=== PATIENT | male | born 1985 | race Caucasian/White ===

== ENCOUNTER 2021-06-22 18:49 | Emergency (ER) | payer OTHER ==
[~2021-06-22] VITALS: Ht 188 cm; Wt 93.9 kg
[2021-06-22] MEDS ORDERED: HUMALOG100 UNIT/2 SQ (19:06)
[2021-06-22] MEDS ORDERED: PROAIR HFA8.5 GM IH (23:22)
[2021-06-22] MEDS ORDERED: TUSNEL LIQUID178 ML PO (23:22)
[2021-06-22] MEDS ORDERED: DOLOGEN CAPLET1 EACH PO (23:22)
== END 2021-06-22 23:33 | disposition home or self-care (01) ==
LOC: ER 18:49
DX: U07.1 COVID-19 (principal); E11.9 Type 2 diabetes mellitus without complications; Z79.4 Long term (current) use of insulin

== ENCOUNTER 2023-10-05 14:32 | Emergency (ER) | payer OTHER ==
[~2023-10-05] VITALS: Ht 188 cm; Wt 95.3 kg
[~2023-10-05 14:32] MED LIST: DOLOGEN CAPLET1 EACH PO; HUMALOG100 UNIT/2 SQ; PROAIR HFA8.5 GM IH; TUSNEL LIQUID178 ML PO
[2023-10-05] MEDS ORDERED: ORPHENADRINE CITRATE 30 MG/ML AMPUL IM STA (15:15)
[2023-10-05] MEDS ORDERED: KETOROLAC TROMETHAMINE 30 MG VIAL IM STA (15:15)
[2023-10-05] MEDS ORDERED: ORPHENADRINE CITRATE 30 MG/ML AMPUL ONE (15:55)
[2023-10-05] MEDS ORDERED: KETOROLAC TROMETHAMINE 30 MG VIAL ONE (15:55)
== END 2023-10-05 16:13 | disposition home or self-care (01) ==
LOC: ER 14:34
DX: M54.89 Other dorsalgia (principal); E11.9 Type 2 diabetes mellitus without complications; Z79.4 Long term (current) use of insulin